=== PATIENT | female | born 1960 | race Two or more races ===

== ENCOUNTER 2017-04-16 09:00 | Outpatient (CLI) | payer OTHER ==
[~2017-04-16 09:00] MED LIST: CATAFLAM50 MG PO; FLONASE16 GM NASAL; GILTUSS TR TAB1 EACH PO; IOPHEN DM-100 MG/5 M PO; TESSALON PERLE100 MG PO; TESSALON200 MG PO; TOBREX5 ML OP; ZITHROMAX TRI-500 MG PO; ZYRTEC10 MG PO
== END 2017-04-16 15:28 | disposition home or self-care (01) ==
LOC: MAMO-SONO 09:00
DX: N60.11 Diffuse cystic mastopathy of right breast (principal); N60.12 Diffuse cystic mastopathy of left breast; N64.59 Other signs and symptoms in breast; Z12.31 Encounter for screening mammogram for malignant neoplasm of breast

== ENCOUNTER → 2017-07-19 | Outpatient (CLI) | payer OTHER | END | disposition home or self-care (01) | LOC: PPHC 08:16 | DX: J06.9 Acute upper respiratory infection, unspecified (principal) ==

== ENCOUNTER 2018-02-14 14:31 | Outpatient (CLI) | payer OTHER | END 2018-02-14 14:34 | disposition home or self-care (01) | LOC: RAD 14:31 | DX: M79.672 Pain in left foot (principal) ==

== ENCOUNTER 2018-04-07 07:01 | Outpatient (CLI) | payer OTHER | END 2018-04-07 07:11 | disposition home or self-care (01) | LOC: LAB 07:01 | DX: D64.89 Other specified anemias (principal); N39.0 Urinary tract infection, site not specified; R10.9 Unspecified abdominal pain; E11.9 Type 2 diabetes mellitus without complications; R73.09 Other abnormal glucose; E03.8 Other specified hypothyroidism; E78.49 Other hyperlipidemia; R80.8 Other proteinuria ==

== ENCOUNTER → 2018-06-16 | Outpatient (CLI) | payer OTHER | END | disposition home or self-care (01) | LOC: NUCLEAR 07:53 | DX: R07.89 Other chest pain (principal) ==

== ENCOUNTER 2018-11-04 17:43 | Outpatient (CLI) | payer OTHER | END 2018-11-04 17:48 | disposition home or self-care (01) | LOC: RAD 17:43 | DX: M54.89 Other dorsalgia (principal); M25.551 Pain in right hip ==

== ENCOUNTER 2018-11-10 15:09 | Outpatient (CLI) | payer OTHER | END 2018-11-10 15:16 | disposition home or self-care (01) | LOC: MAMO-SONO 15:09 | DX: N64.4 Mastodynia (principal); Z12.31 Encounter for screening mammogram for malignant neoplasm of breast; Z87.898 Personal history of other specified conditions ==

== ENCOUNTER → 2018-11-15 06:58 | Outpatient (CLI) | payer OTHER | END | disposition home or self-care (01) | LOC: LAB 06:58 → CERTIFICAD 06:58 | DX: Z11.1 Encounter for screening for respiratory tuberculosis (principal) ==

== ENCOUNTER → 2019-11-07 14:46 | Outpatient (CLI) | payer OTHER | END | disposition home or self-care (01) | LOC: CERTIFICAD 14:46 | PROVIDERS: ATTEND Family Medicine | DX: Z11.1 Encounter for screening for respiratory tuberculosis (principal) ==

== ENCOUNTER 2019-12-14 09:00 | Outpatient (CLI) | payer OTHER | END 2019-12-14 14:11 | disposition home or self-care (01) | LOC: PPH VACUNA 09:00 | DX: Z23 Encounter for immunization (principal) ==

== ENCOUNTER → 2020-01-15 | Outpatient (CLI) | payer OTHER | END | disposition home or self-care (01) | LOC: LAB 07:32 | PROVIDERS: ATTEND Internal Medicine Cardiovascular Disease | DX: M77.32 Calcaneal spur, left foot (principal); M77.31 Calcaneal spur, right foot; I10 Essential (primary) hypertension; E11.9 Type 2 diabetes mellitus without complications; E03.8 Other specified hypothyroidism; E78.2 Mixed hyperlipidemia; E55.9 Vitamin D deficiency, unspecified ==

== ENCOUNTER → 2020-01-24 14:28 | Outpatient (CLI) | payer OTHER | END | disposition home or self-care (01) | LOC: LAB 14:28 | PROVIDERS: ATTEND General Practice | DX: R05 Cough (principal); Z03.818 Encounter for observation for suspected exposure to other biological agents ruled out; R06.02 Shortness of breath; R50.9 Fever, unspecified ==

== ENCOUNTER → 2020-01-24 | Outpatient (CLI) | payer OTHER | END | disposition home or self-care (01) | LOC: MAMO-SONO 10:51 | PROVIDERS: ATTEND Internal Medicine Cardiovascular Disease | DX: Z12.31 Encounter for screening mammogram for malignant neoplasm of breast (principal); N63.11 Unspecified lump in the right breast, upper outer quadrant ==

== ENCOUNTER 2020-02-02 13:23 | Outpatient (CLI) | payer OTHER | END 2020-02-02 13:38 | disposition home or self-care (01) | LOC: NUCLEAR 13:23 | PROVIDERS: ATTEND Internal Medicine Cardiovascular Disease | DX: M81.0 Age-related osteoporosis without current pathological fracture (principal); E55.9 Vitamin D deficiency, unspecified ==

== ENCOUNTER → 2020-02-28 07:54 | Outpatient (CLI) | payer OTHER | END | disposition home or self-care (01) | LOC: LAB 07:54 | PROVIDERS: ATTEND Obstetrics & Gynecology Gynecology | DX: D50.0 Iron deficiency anemia secondary to blood loss (chronic) (principal) ==

== ENCOUNTER → 2020-04-23 07:11 | Outpatient (CLI) | payer OTHER | END | disposition home or self-care (01) | LOC: LAB 07:11 | DX: Z03.818 Encounter for observation for suspected exposure to other biological agents ruled out (principal) ==

== ENCOUNTER 2020-09-19 08:00 | Outpatient (CLI) | payer OTHER | END 2020-09-19 18:00 | disposition home or self-care (01) | LOC: LAB | PROVIDERS: ATTEND Internal Medicine Cardiovascular Disease | DX: I10 Essential (primary) hypertension (principal); E11.9 Type 2 diabetes mellitus without complications; E03.9 Hypothyroidism, unspecified; E88.2 Lipomatosis, not elsewhere classified; E55.9 Vitamin D deficiency, unspecified ==

== ENCOUNTER 2020-10-28 07:18 | Outpatient (CLI) | payer OTHER | END 2020-10-28 15:00 | disposition home or self-care (01) | LOC: LAB 07:18 | PROVIDERS: ATTEND Emergency Medicine Pediatric Emergency Medicine | DX: Z20.828 Contact with and (suspected) exposure to other viral communicable diseases (principal) ==

== ENCOUNTER 2020-11-01 08:00 | Outpatient (CLI) | payer OTHER | END 2020-11-01 08:30 | disposition home or self-care (01) | LOC: PPH VACUNA 08:00 | DX: Z23 Encounter for immunization (principal) ==

== ENCOUNTER 2020-11-22 08:00 | Outpatient (CLI) | payer OTHER | END 2020-11-22 08:30 | disposition home or self-care (01) | LOC: PPH VACUNA 08:00 | PROVIDERS: ATTEND Emergency Medicine Pediatric Emergency Medicine | DX: Z23 Encounter for immunization (principal) ==

== ENCOUNTER 2021-01-10 08:06 | Outpatient (CLI) | payer OTHER | END 2021-01-10 08:09 | disposition home or self-care (01) | LOC: PPH VACUNA 08:06 | PROVIDERS: ATTEND Emergency Medicine Pediatric Emergency Medicine | DX: Z23 Encounter for immunization (principal) ==

== ENCOUNTER 2021-02-11 07:33 | Outpatient (CLI) | payer OTHER | END 2021-02-11 08:00 | disposition home or self-care (01) | LOC: MAMO-SONO 07:33 | PROVIDERS: ATTEND Internal Medicine Cardiovascular Disease | DX: N63.11 Unspecified lump in the right breast, upper outer quadrant (principal) ==

== ENCOUNTER 2021-02-21 06:09 | Outpatient (CLI) | payer OTHER | END 2021-02-21 06:10 | disposition home or self-care (01) | LOC: LAB 06:09 | PROVIDERS: ATTEND Internal Medicine Cardiovascular Disease | DX: I10 Essential (primary) hypertension (principal); E11.9 Type 2 diabetes mellitus without complications; E03.8 Other specified hypothyroidism; E78.2 Mixed hyperlipidemia ==

== ENCOUNTER 2021-04-11 10:44 | Outpatient (CLI) | payer OTHER | END 2021-04-11 10:49 | disposition home or self-care (01) | LOC: RAD 10:44 | DX: M99.01 Segmental and somatic dysfunction of cervical region (principal); M99.02 Segmental and somatic dysfunction of thoracic region; M99.03 Segmental and somatic dysfunction of lumbar region; M99.04 Segmental and somatic dysfunction of sacral region ==

== ENCOUNTER 2021-04-25 08:00 | Outpatient (CLI) | payer OTHER | END 2021-04-25 08:30 | disposition home or self-care (01) | LOC: PPH VACUNA 08:00 | PROVIDERS: ATTEND Emergency Medicine Pediatric Emergency Medicine | DX: Z23 Encounter for immunization (principal) ==

== ENCOUNTER 2021-06-28 15:36 | Emergency (ER) | payer OTHER ==
[~2021-06-28] VITALS: Ht 160 cm; Wt 69.4 kg
== END 2021-06-28 17:51 | disposition home or self-care (01) ==
LOC: ER 15:36
DX: S92.355A Nondisplaced fracture of fifth metatarsal bone, left foot, initial encounter for closed fracture (principal); X58.XXXA Exposure to other specified factors, initial encounter; Y93.9 Activity, unspecified; Y92.9 Unspecified place or not applicable; Y99.9 Unspecified external cause status

== ENCOUNTER 2021-07-01 10:44 | Emergency (ER) | payer OTHER ==
[~2021-07-01] VITALS: Ht 160 cm; Wt 69.4 kg
== END 2021-07-01 14:14 | disposition home or self-care (01) ==
LOC: ER 10:44
DX: S92.912A Unspecified fracture of left toe(s), initial encounter for closed fracture (principal); W18.30XA Fall on same level, unspecified, initial encounter; Y93.9 Activity, unspecified; Y92.019 Unspecified place in single-family (private) house as the place of occurrence of the external cause

== ENCOUNTER 2021-07-15 08:07 | Outpatient (CLI) | payer OTHER | END 2021-07-15 08:14 | disposition home or self-care (01) | LOC: LAB 08:07 | PROVIDERS: ATTEND Orthopaedic Surgery | DX: E55.9 Vitamin D deficiency, unspecified (principal); M85.9 Disorder of bone density and structure, unspecified; D56.1 Beta thalassemia ==

== ENCOUNTER → 2021-08-21 | Outpatient (CLI) | payer OTHER | END | disposition home or self-care (01) | LOC: NUCLEAR 13:13 | PROVIDERS: ATTEND Orthopaedic Surgery | DX: M81.0 Age-related osteoporosis without current pathological fracture (principal) ==

== ENCOUNTER 2021-08-22 08:05 | Outpatient (CLI) | payer OTHER | END 2021-08-22 08:11 | disposition home or self-care (01) | LOC: RAD 08:05 | PROVIDERS: ATTEND Orthopaedic Surgery | DX: M25.572 Pain in left ankle and joints of left foot (principal) ==

== ENCOUNTER → 2021-09-15 | Outpatient (CLI) | payer OTHER | END | disposition home or self-care (01) | LOC: LAB 08:38 | PROVIDERS: ATTEND Orthopaedic Surgery | DX: E55.9 Vitamin D deficiency, unspecified (principal); M85.9 Disorder of bone density and structure, unspecified; E56.1 Deficiency of vitamin K; D21.3 Benign neoplasm of connective and other soft tissue of thorax; E88.9 Metabolic disorder, unspecified; M81.8 Other osteoporosis without current pathological fracture ==

== ENCOUNTER 2021-10-17 10:31 | Outpatient (CLI) | payer OTHER | END 2021-10-17 10:34 | disposition home or self-care (01) | LOC: RAD 10:31 | PROVIDERS: ATTEND Orthopaedic Surgery | DX: M25.572 Pain in left ankle and joints of left foot (principal); S92.352D Displaced fracture of fifth metatarsal bone, left foot, subsequent encounter for fracture with routine healing ==

== ENCOUNTER 2021-12-10 14:50 | Outpatient (CLI) | payer OTHER | END 2021-12-10 14:55 | disposition home or self-care (01) | LOC: PPH VACUNA 14:50 | PROVIDERS: ATTEND Emergency Medicine Pediatric Emergency Medicine | DX: Z23 Encounter for immunization (principal) ==

== ENCOUNTER 2022-02-20 07:08 | Outpatient (CLI) | payer OTHER | END 2022-02-20 07:15 | disposition home or self-care (01) | LOC: MAMO-SONO 07:08 | PROVIDERS: ATTEND Internal Medicine Cardiovascular Disease | DX: N63.11 Unspecified lump in the right breast, upper outer quadrant (principal) ==

== ENCOUNTER → 2022-02-26 07:39 | Outpatient (CLI) | payer OTHER | END | disposition home or self-care (01) | LOC: LAB 07:39 | PROVIDERS: ATTEND Internal Medicine Cardiovascular Disease | DX: I10 Essential (primary) hypertension (principal); E11.9 Type 2 diabetes mellitus without complications; E03.9 Hypothyroidism, unspecified; E78.2 Mixed hyperlipidemia; E55.9 Vitamin D deficiency, unspecified ==

== ENCOUNTER 2022-02-26 14:00 | Outpatient (CLI) | payer OTHER | END 2022-02-26 14:07 | disposition home or self-care (01) | LOC: LAB 14:00 | PROVIDERS: ATTEND Internal Medicine Cardiovascular Disease | DX: J11.1 Influenza due to unidentified influenza virus with other respiratory manifestations (principal); A49.3 Mycoplasma infection, unspecified site; Z20.822 Contact with and (suspected) exposure to COVID-19 ==

== ENCOUNTER 2022-04-03 07:04 | Outpatient (CLI) | payer OTHER | END 2022-04-03 07:35 | disposition home or self-care (01) | LOC: LAB 07:04 | PROVIDERS: ATTEND Obstetrics & Gynecology Gynecology | DX: E11.9 Type 2 diabetes mellitus without complications (principal); I10 Essential (primary) hypertension ==

== ENCOUNTER 2022-09-16 07:51 | Outpatient (CLI) | payer OTHER | END 2022-09-16 08:03 | disposition home or self-care (01) | LOC: RAD 07:51 | PROVIDERS: ATTEND General Practice | DX: M54.50 Low back pain, unspecified (principal) ==

== ENCOUNTER 2023-01-26 10:51 | Outpatient (CLI) | payer OTHER | END 2023-01-26 11:10 | disposition home or self-care (01) | LOC: TOM 10:51 | DX: M47.816 Spondylosis without myelopathy or radiculopathy, lumbar region (principal); M51.36 Other intervertebral disc degeneration, lumbar region ==

== ENCOUNTER 2023-03-10 11:06 | Outpatient (CLI) | payer OTHER | END 2023-03-10 11:08 | disposition home or self-care (01) | LOC: MAMO-SONO 11:06 | PROVIDERS: ATTEND General Practice | DX: Z12.31 Encounter for screening mammogram for malignant neoplasm of breast (principal); N64.4 Mastodynia ==

== ENCOUNTER 2024-03-13 10:13 | Outpatient (CLI) | payer OTHER ==
[~2024-03-13 10:13] MED LIST changes: +DICLOFENAC SODI50 MG PO
== END 2024-03-13 10:18 | disposition home or self-care (01) ==
LOC: MAMO-SONO 10:13
DX: Z12.31 Encounter for screening mammogram for malignant neoplasm of breast (principal)

== ENCOUNTER 2024-04-29 16:59 | Emergency (ER) | payer OTHER ==
[~2024-04-29] VITALS: Ht 160 cm; Wt 70.3 kg
[2024-04-29] MEDS ORDERED: FAMOTIDINE/PF 20 MG/2 ML VIAL IV PUSH STA (18:54)
[2024-04-29] MEDS ORDERED: MECLIZINE HCL 25 MG TABLET PO STA (18:54)
[2024-04-29] MEDS ORDERED: ONDANSETRON HCL 2 MG/ML VIAL IV STA (18:54)
[2024-04-29] MEDS ORDERED: KETOROLAC TROMETHAMINE 30 MG VIAL IV STA (18:56)
[2024-04-29] MEDS ORDERED: KETOROLAC TROMETHAMINE 30 MG VIAL ONE (19:22)
[2024-04-29] MEDS ORDERED: FAMOTIDINE/PF 20 MG/2 ML VIAL ONE (19:22)
[2024-04-29] MEDS ORDERED: MECLIZINE HCL 25 MG TABLET PO ONE (19:22)
[2024-04-29] MEDS ORDERED: ONDANSETRON HCL 2 MG/ML VIAL ONE (19:22)
== END 2024-04-29 21:15 | disposition home or self-care (01) ==
LOC: ER 17:01
DX: R53.81 Other malaise (principal); R42 Dizziness and giddiness; R51.9 Headache, unspecified

== ENCOUNTER 2024-05-09 12:06 | Outpatient (CLI) | payer OTHER | END 2024-05-09 12:12 | disposition home or self-care (01) | LOC: RAD 12:06 | PROVIDERS: ATTEND General Practice | DX: M54.2 Cervicalgia (principal); M25.521 Pain in right elbow; S50.01XA Contusion of right elbow, initial encounter ==

== ENCOUNTER 2024-07-14 17:57 | Emergency (ER) | payer OTHER ==
[~2024-07-14] VITALS: Ht 160 cm; Wt 70.8 kg
[2024-07-14] MEDS ORDERED: KETOROLAC TROMETHAMINE 30 MG VIAL IM STA (19:17)
[2024-07-14] MEDS ORDERED: KETOROLAC TROMETHAMINE 30 MG VIAL ONE (19:21)
== END 2024-07-14 20:43 | disposition home or self-care (01) ==
LOC: ER 17:57
DX: M25.552 Pain in left hip (principal); M85.88 Other specified disorders of bone density and structure, other site

== ENCOUNTER 2024-07-19 07:30 | Outpatient (CLI) | payer OTHER | END 2024-07-19 07:33 | disposition home or self-care (01) | LOC: SONOGRAMA 07:30 | DX: M25.519 Pain in unspecified shoulder (principal) ==

== ENCOUNTER 2024-11-28 10:29 | Outpatient (CLI) | payer OTHER | END 2024-11-28 10:31 | disposition home or self-care (01) | LOC: RAD 10:29 | PROVIDERS: ATTEND Orthopaedic Surgery | DX: M47.812 Spondylosis without myelopathy or radiculopathy, cervical region (principal); M25.121 Fistula, right elbow ==

== ENCOUNTER 2025-01-11 07:00 | Day surgery (SDC) | payer OTHER ==
[2025-01-03 12:40] VITALS: BP 126/82
[~2025-01-11] VITALS: Ht 157.5 cm; Wt 71.7 kg
[2025-01-11] MEDS ORDERED: CEFAZOLIN SODIUM 1,000 MG VIAL ONE (08:20)
[2025-01-11] MEDS ORDERED: LIDOCAINE HCL 1%/EPINEPHRINE 20ML VIAL IJ ONE ×2 (09:12→09:45)
[2025-01-11] MEDS ORDERED: CEFAZOLIN SODIUM 1,000 MG VIAL IV ONE (09:45)
[2025-01-11] MEDS ORDERED: ISOPROPYL ALCOHOL 30 ML OUNCE TOP ONE (09:45)
[2025-01-11] MEDS ORDERED: SUGAMMADEX SODIUM 200 MG/2 ML VIAL IV ONE (09:58)
[2025-01-11] MEDS ORDERED: KETOROLAC TROMETHAMINE 30 MG VIAL ONE (10:28)
== END 2025-01-11 14:10 | disposition home or self-care (01) ==
LOC: CIR.AMB 07:00
PROVIDERS: ATTEND Orthopaedic Surgery
DX: M75.111 Incomplete rotator cuff tear or rupture of right shoulder, not specified as traumatic (principal); M75.21 Bicipital tendinitis, right shoulder; M24.111 Other articular cartilage disorders, right shoulder